=== PATIENT | male | born 1990 ===

== ENCOUNTER 2017-01-21 13:28 | Inpatient (IN) | payer MEDICAID, OTHER ==
[2017-01-21] MEDS ORDERED: Sodium Chloride 0.9% 1,000 ML IV ONE ×2 (14:07)
[2017-01-21] MEDS ORDERED: ceFAZolin IV 1 gm in Dextrose 1 GM/50 ML BAG IVPB STA (14:08)
[2017-01-21 14:23] LABS: VENOUS BLOOD GAS BASE EXCESS -10.5 mmol/L (0.0-2.0); VENOUS BLOOD GAS PCO2 25 mmHg (40-60); VENOUS BLOOD PH 7.34 (7.32-7.43)
[2017-01-21] MEDS ORDERED: ceFAZolin 1 gm FROZEN Premix 1 GM/50 ML ML IVPB ONE (14:24)
[2017-01-21] MEDS ORDERED: Sodium Chloride 0.9% 1,000 ML ONE (14:25)
[2017-01-21 14:39] LABS: BASO % 0.7 % (0.0-2.0); EOS # 0.2 K/uL (0.0-0.7); EOS % 2.6 % (0.0-4.0); LYMPH # 2.1 K/uL (1.0-4.3); LYMPH % 29.3 % (20.0-40.0); MEAN CELL VOLUME 87.5 fL (80.0-94.0); MEAN CORPUSCULAR HEMOGLOBIN 28.9 pg (27.0-31.0); MEAN PLATELET VOLUME 11.7 fL (7.2-11.7); MONO # 0.6 K/uL (0.0-0.8); MONO % 7.7 % (0.0-10.0); NRBC % 0.1 % (0.0-2.0); RED CELL DISTRIBUTION WIDTH 13.7 % (11.5-14.5); WHITE BLOOD COUNT 7.2 K/uL (4.8-10.8)
[2017-01-21 14:44] LABS: RBC URINE < 1 /hpf (0-3); URINE BILIRUBIN NEGATIVE (NEGATIVE); URINE BLOOD NEGATIVE (NEGATIVE); URINE COLOR Straw (YELLOW); URINE GLUCOSE (UA) 3+ mg/dL (Normal); URINE KETONE 2+ mg/dL (NEGATIVE); URINE LEUKOCYTE ESTERASE NEG Leu/uL (Negative); URINE PROTEIN NEGATIVE (NEGATIVE); URINE UROBILINOGEN NORMAL mg/dL (0.2-1.0); WBC URINE < 1 /hpf (0-5)
--- NOTE | 2017-01-21 14:44 | C.PDOC ---
History Of Present Illness 26 y/o male recent Diabetic presents to ED with complaints of blood sugar elevated and comes for evaluation of draining abscess to left upper leg. Patient denies allergies, fever, chills, numbness, n/v/d or any other complaints at this time. Time Seen by Provider: 01/21/17 13:56 Chief Complaint (Nursing): Abnormal Skin Integrity History Per: Patient History/Exam Limitations: no limitations Onset/Duration Of Symptoms: Days Current Symptoms Are (Timing): Still Present Location Of Injury: Left: Leg Quality Of Symptoms: Draining Past Medical History Reviewed: Historical Data, Nursing Documentation, Vital Signs Vital Signs: Last Vital Signs Temp 97.9 F 01/21/17 13:32 Pulse 97 H 01/21/17 16:17 Resp 19 01/21/17 16:17 BP 129/82 01/21/17 16:17 Pulse Ox 96 01/21/17 16:17 - Medical History PMH: Asthma Family History: States: No Known Family Hx - Social History Hx Alcohol Use: Yes Hx Substance Use: No - Immunization History Hx Tetanus Toxoid Vaccination: No (UNKNOWN) Hx Influenza Vaccination: No Review Of Systems Except As Marked, All Systems Reviewed And Found Negative. Constitutional: Negative for: Fever, Chills Gastrointestinal: Negative for: Nausea, Vomiting, Diarrhea Musculoskeletal: Positive for: Leg Pain Skin: Negative for: Rash Physical Exam - Physical Exam Appears: Non-toxic, No Acute Distress Skin: Warm, Dry, No Rash Head: Atraumatic, Normacephalic Oral Mucosa: Moist Chest: Symmetrical Cardiovascular: Rhythm Regular Respiratory: Normal Breath Sounds, No Rhonchi, No Wheezing Gastrointestinal/Abdominal: Soft, No Tenderness, No Guarding, No Rebound Extremity: Normal ROM, Capillary Refill (<2 seconds), Other (Cellulitis to left upper thigh, no draining, not flunctuant, +erythematous) Pulses: Left Dorsalis Pedis: Normal, Right Dorsalis Pedis: Normal Neurological/Psych: Oriented x3, Normal Speech, Normal Cognition, Normal Motor, Normal Sensation ED Course And Treatment - Laboratory Results Result Diagrams: 01/21/17 14:21 01/21/17 14:21 Lab Interpretation: Abnormal O2 Sat by Pulse Oximetry: 97 (RA) Pulse Ox Interpretation: Normal Progress Note: Treated with IVF NSS x 2 liters. Treated with ancef 1 gm IV and Insulin 5 Units IV Reassessment Condition: Improved - Physician Consult Information Physician Contacted: Neal Guerrero Outcome Of Conversation: admit Medical Decision Making Medical Decision Making: Plan: * IV fluids * Antibiotics Disposition Discussed With DrDestiny: Neal Guerrero Doctor Will See Patient In The: Hospital - Disposition Disposition: HOSPITALIZED Disposition Time: 15:25 Condition: STABLE - POA Present On Arrival: None - Clinical Impression Clinical Impression: Diabetes, Cellulitis - Scribe Statement The provider has reviewed the documentation as recorded by the Mickeyibanthony Taylor All medical record entries made by the Mickeyibanthony were at my direction and personally dictated by me. I have reviewed the chart and agree that the record accurately reflects my personal performance of the history, physical exam, medical decision making, and the department course for this patient. I have also personally directed, reviewed, and agree with the discharge instructions and disposition. Decision To Admit - Pt Status Changed To: Hospital Disposition Of: Inpatient - Admit Certification Admit to Inpatient:: After my assessment, the patient will require hospitalization for at least two midnights. This is because of the severity of symptoms shown, intensity of services needed, and/or the medical risk in this patient being treated as an outpatient. - InPatient: Physician Admission Certification: I certify that this patient requires 2 or more midnights of care for the following reason:: New Onset DM. Cellulitis left thigh - . Bed Request Type: Regular Admitting Physician: Neal Guerrero Patient Diagnosis: Diabetes, Cellulitis
[2017-01-21 14:51] LABS: CHLORIDE 98 mmol/L (98-107); POTASSIUM 4.3 mmol/L (3.6-5.2); SODIUM 134 mmol/L (132-148)
[2017-01-21 14:53] LABS: BILIRUBIN,TOTAL 1.3 mg/dL (0.2-1.3); GFR AFRICAN-AMERICAN > 60
[2017-01-21 14:54] LABS: ALB/GLOB RATIO 1.4 (1.0-2.1); ALKALINE PHOSPHATASE 83 U/L (38-126); ALT/SGPT 57 U/L (21-72); AST/SGOT 36 U/L (17-59); BLOOD UREA NITROGEN 10 mg/dL (9-20); CALCIUM 8.2 mg/dl (8.6-10.4); CARBON DIOXIDE 16 mmol/L (22-30); TOTAL PROTEIN 7.1 g/dL (6.3-8.3)
[2017-01-21 15:00] LABS: GLUCOSE,RANDOM 412 mg/dL (75-110)
[2017-01-21] MEDS ORDERED: (Novolin R) Insulin Human Regular 100 units/ml vial IV STA (15:27)
[2017-01-21] MEDS ORDERED: (Novolin R) Insulin Human Regular 100 units/ml vial ONE (16:04)
--- NOTE | 2017-01-21 16:13 | CP.PCM.HP ---
<Vasquez Nino - Last Filed: 01/21/17 17:24> History of Present Illness - History of Present Illness History of Present Illness: CC: abscess HPI: 26M PMHx asthma presented with left upper thigh abscess. Pt noticed pimple growing on left thigh on Thursday and got bigger progressively. Pt was at water park yesterday and was playing in water. Pt noticed the pimple got worse and started having bloody pus drainage today. Pt said he had similar pimple in the groin region in the past but did not developed into draining abscess. Pt complains of localized pain and denied fever, chills, n/v, chest pain, abdominal pain, constipation or diarrhea. Pt also has history of asthma and has been using ProAir on daily basis. Pt also complains of dry mouth, and has increased thirst with associated urinary frequency. Pt was admitted to hospital 5 years ago due to asthma, denied intubation. PMHx: see above PSHx: denied FMHx: father has CVA x2, grandfather has prostate CA, other members with DM and HTN Social: former smoker with 7 cigarettes a day for 10 years, quit 5 years ago. Social ETOH and denied drugs. Works at [employer]. Allergies: shelf fish and milk PMD: Dr. Ureña Present on Admission - Present on Admission Any Indicators Present on Admission: No Review of Systems - Constitutional Constitutional: absent: Chills, Weakness - EENT Eyes: absent: Blurred Vision Nose/Mouth/Throat: Dry Mouth - Cardiovascular Cardiovascular: absent: Chest Pain, Dyspnea, Leg Ulcers, Pedal Edema - Respiratory Respiratory: absent: Cough, Dyspnea - Gastrointestinal Gastrointestinal: absent: Abdominal Pain, Constipation, Diarrhea, Nausea, Vomiting - Genitourinary Genitourinary: Urinary Frequency - Integumentary Integumentary: New Lesions, Wounds - Neurological Neurological: absent: Abnormal Hearing - Psychiatric Psychiatric: absent: Anhedonia Past Patient History - Past Social History Smoking Status: Never Smoked - PULMONARY Hx Asthma: Yes - PSYCHIATRIC Hx Substance Use: No - SURGICAL HISTORY Hx Surgeries: No - ANESTHESIA Hx Anesthesia: No Meds Allergies/Adverse Reactions: Allergies Allergy/AdvReac Type Severity Reaction Status Date / Time milk Allergy Verified 01/21/17 13:32 shellfish derived Allergy Verified 01/21/17 13:32 Physical Exam - Constitutional Appears: Non-toxic, No Acute Distress Additional comments: obese - Head Exam Head Exam: NORMOCEPHALIC - Eye Exam Eye Exam: Normal appearance Pupil Exam: NORMAL ACCOMODATION - ENT Exam ENT Exam: Mucous Membranes Moist - Respiratory Exam Respiratory Exam: Clear to Auscultation Bilateral, NORMAL BREATHING PATTERN. absent: Rhonchi, Wheezes - Cardiovascular Exam Cardiovascular Exam: REGULAR RHYTHM, +S1, +S2. absent: Gallop, Rubs - GI/Abdominal Exam GI & Abdominal Exam: Normal Bowel Sounds, Soft. absent: Tenderness - Extremities Exam Extremities exam: Negative for: pedal edema - Back Exam Additional comments: multiple skin tags - Neurological Exam Neurological exam: Alert, Oriented x3 - Psychiatric Exam Psychiatric exam: Normal Affect, Normal Mood - Skin Additional comments: [id number] raised open wound with bloody discharge at left groin with induration below, erythematous. Scrotal region erythematous as well Results - Vital Signs Recent Vital Signs: Last Vital Signs Temp 97.9 F 01/21/17 13:32 Pulse 101 H 01/21/17 13:32 Resp 16 01/21/17 13:32 BP 156/96 H 01/21/17 13:32 Pulse Ox 97 01/21/17 15:34 - Labs Result Diagrams: 01/21/17 14:21 01/21/17 14:21 Labs: Laboratory Results - last 24 hr 01/21/17 15:39 POC Glucose (mg/dL) 365 H Assessment & Plan - Assessment and Plan (Free Text) Assessment: Abscess/Cellulitis General surgery Dr. Redd consulted, help appreciated. ID Dr. Chino consulted, help appreciated. Received 1 dose of Ancef in ED. Zosyn 3.375g IV q6H. Vancomycin 1.25g IV q12H per ID. NS@125ml/hr. F/U wound and blood culture. New onset DM 412 sugar on admission. Heart healthy moderate consistent carb diet. RISS, Accuchecks. F/U A1c. Asthma Duoneb PRN. Prophylactic measure Pepcid, SCD. <Antonio Serrano - Last Filed: 02/24/17 11:47> Results - Vital Signs Recent Vital Signs: Last Vital Signs Temp 97.8 F 01/23/17 07:28 Pulse 83 01/23/17 07:28 Resp 20 01/23/17 07:28 BP 121/70 01/23/17 07:28 Pulse Ox 95 01/23/17 07:28 - Labs Result Diagrams: 01/22/17 08:14 01/22/17 08:14 Attending/Attestation - Attestation I have personally seen and examined this patient.: Yes I have fully participated in the care of the patient.: Yes I have reviewed all pertinent clinical information: Yes Notes (Text): Groin abscess new onset DM uncontrolled
[2017-01-21] MEDS ORDERED: Sodium Chloride 0.9% 1,000 ML IV SCH (17:15)
[2017-01-21] MEDS: Sodium Chloride 0.9% 1,000 ML IV SCH (18:01)
--- NOTE | 2017-01-21 18:26 | CP.PCM.CON ---
<Neal Padron - Last Filed: 01/21/17 18:39> History of Present Illness - History of Present Illness History of Present Illness: Consult note- Dr. Redd 26M PMHx asthma presented to the ED with L upper thigh abscess that first took notice on Thursday and got progressively bigger. Today it started blood w/ purulent drainage. Pt had a similar episode in the past that resolved spontaneously. Pt also states inguinal fold is itchy and placed a joke itch cream that helped with symptoms. Denies F/C CP/SOB N/V/D BRBPR. PMHx: Asthma PSHx: none SocialHx: former smoker 7 cigarettes a day for 10 years, quit 5 years ago. Social ETOH and denied drugs ALL:: shelf fish and milk Review of Systems - Review of Systems All systems: reviewed and no additional remarkable complaints except Past Patient History - Past Social History Smoking Status: Never Smoked - PULMONARY Hx Asthma: Yes - PSYCHIATRIC Hx Substance Use: No - SURGICAL HISTORY Hx Surgeries: No - ANESTHESIA Hx Anesthesia: No Meds Allergies/Adverse Reactions: Allergies Allergy/AdvReac Type Severity Reaction Status Date / Time milk Allergy Verified 01/21/17 13:32 shellfish derived Allergy Verified 01/21/17 13:32 - Medications Medications: Current Medications Albuterol/Ipratropium (Duoneb 3 Mg/0.5 Mg (3 Ml) Ud) 3 ml INH RQ2 PRN PRN Reason: SOB Famotidine (Pepcid) 20 mg PO BID [facility] Last Admin: 01/21/17 18:03 Dose: 20 mg Piperacillin Sod/Tazobactam Sod (Zosyn 3.375 Gm Iv Premix) 3.375 gm in 50 mls @ 100 mls/hr IVPB Q6H [facility] Vancomycin HCl 1,250 mg/ (Sodium Chloride) 250 mls @ 166.6 mls/hr IVPB Q12H [facility] Last Admin: 01/21/17 18:02 Dose: 166.6 mls/hr Sodium Chloride (Sodium Chloride 0.9%) 1,000 mls @ 125 mls/hr IV .Q8H [facility] Last Admin: 01/21/17 18:01 Dose: 125 mls/hr Insulin Human Regular (Novolin R) 0 unit SC ACHS [facility] PRN Reason: Protocol Physical Exam - Constitutional Appears: No Acute Distress - Head Exam Head Exam: ATRAUMATIC - Eye Exam Eye Exam: EOMI - ENT Exam ENT Exam: Mucous Membranes Dry - Respiratory Exam Respiratory Exam: NORMAL BREATHING PATTERN. absent: Accessory Muscle Use, Rhonchi - Cardiovascular Exam Cardiovascular Exam: +S1, +S2 - GI/Abdominal Exam GI & Abdominal Exam: Normal Bowel Sounds, Soft. absent: Distended, Firm, Tenderness - Exam Additional comments: open actively draining abscess, erythematous, induration, no fluctuance. - Extremities Exam Extremities exam: Positive for: pedal edema Additional comments: +2 pulses U and LE B/L Results - Vital Signs Recent Vital Signs: Last Vital Signs Temp 98 F 01/21/17 16:00 Pulse 97 H 01/21/17 16:17 Resp 19 01/21/17 16:17 BP 129/82 01/21/17 16:17 Pulse Ox 97 01/21/17 16:57 - Labs Result Diagrams: 01/21/17 14:21 01/21/17 14:21 Labs: Laboratory Results - last 24 hr 01/21/17 01/21/17 01/21/17 15:39 16:44 17:02 POC Glucose (mg/dL) 365 H 258 H Hemoglobin A1c 12.1 H Assessment & Plan - Assessment and Plan (Free Text) Assessment: 26M Left medial thigh cellulitis Plan: - f/u ultrasound to determine fluid collection - nystatin powder - glycemic control - c/w IV abx - further recs per Dr. Ivania Padron PGY1 <Shabbir Redd - Last Filed: 01/24/17 17:37> Results - Vital Signs Recent Vital Signs: Last Vital Signs Temp 97.8 F 01/23/17 07:28 Pulse 83 01/23/17 07:28 Resp 20 01/23/17 07:28 BP 121/70 01/23/17 07:28 Pulse Ox 95 01/23/17 07:28 - Labs Result Diagrams: 01/22/17 08:14 01/22/17 08:14 Attending/Attestation - Attestation I have personally seen and examined this patient.: Yes I have fully participated in the care of the patient.: Yes I have reviewed all pertinent clinical information: Yes Notes (Text): 01/24/17 17:36 Pt was seen and examined at bedside Agree with above note and assessment Pt with Left thigh cellulitis with DM Local wound care C.w IV antibiotics Plan d.w pt in detail Risk and benefit explained in detail.
[2017-01-21] MEDS: Albuterol-Ipratrop 3 mg / 0.5 (3 ml) UD INH PRN ×2 (18:28→23:33)
[2017-01-21] MEDS: Piperacill/Tazo 3.375gm in Dex 3.375 GM/50 ML BAG IVPB SCH (19:55)
[2017-01-21] MEDS ORDERED: Pneumococcal 23-Valent Vaccine IM ONE (20:40)
[2017-01-21] MEDS: (Novolin R) Insulin Human Regular 100 units/ml vial SC SCH (22:25)
[2017-01-22] MEDS: Piperacill/Tazo 3.375gm in Dex 3.375 GM/50 ML BAG IVPB SCH ×4 (00:20→19:43)
[2017-01-22] MEDS: Sodium Chloride 0.9% 1,000 ML IV SCH ×4 (05:04→17:43)
[2017-01-22 07:21] VITALS: RESP 20
[2017-01-22] MEDS: Albuterol-Ipratrop 3 mg / 0.5 (3 ml) UD INH PRN ×4 (07:55→19:09)
[2017-01-22] MEDS: (Novolin R) Insulin Human Regular 100 units/ml vial SC SCH ×4 (08:06→21:22)
[2017-01-22 08:32] LABS: CHLORIDE 104 mmol/L (98-107); POTASSIUM 3.8 mmol/L (3.6-5.2); SODIUM 135 mmol/L (132-148)
[2017-01-22 08:34] LABS: GFR AFRICAN-AMERICAN > 60
[2017-01-22 08:35] LABS: ALB/GLOB RATIO 1.3 (1.0-2.1); ALKALINE PHOSPHATASE 63 U/L (38-126); ALT/SGPT 59 U/L (21-72); AST/SGOT 28 U/L (17-59); BILIRUBIN,TOTAL 0.8 mg/dL (0.2-1.3); BLOOD UREA NITROGEN 7 mg/dL (9-20); CALCIUM 7.9 mg/dl (8.6-10.4); CARBON DIOXIDE 15 mmol/L (22-30); GLUCOSE,RANDOM 247 mg/dL (75-110); TOTAL PROTEIN 5.7 g/dL (6.3-8.3)
[2017-01-22 08:37] LABS: BASO % 0.8 % (0.0-2.0); EOS # 0.2 K/uL (0.0-0.7); EOS % 4.4 % (0.0-4.0); HEMATOCRIT 40.4 % (35.0-51.0); LYMPH # 1.6 K/uL (1.0-4.3); LYMPH % 32.2 % (20.0-40.0); MEAN CELL VOLUME 87.3 fL (80.0-94.0); MEAN CORPUSCULAR HEMOGLOBIN 29.7 pg (27.0-31.0); MEAN PLATELET VOLUME 11.2 fL (7.2-11.7); MONO # 0.4 K/uL (0.0-0.8); MONO % 7.1 % (0.0-10.0); RED CELL DISTRIBUTION WIDTH 14.1 % (11.5-14.5); WHITE BLOOD COUNT 5.1 K/uL (4.8-10.8)
[2017-01-22] MEDS: Clotrimazole 1% Cream(30 gm) TOP SCH ×2 (10:52→21:29)
--- NOTE | 2017-01-22 12:54 | CP.PCM.PN ---
<Cresencio Francis E - Last Filed: 01/22/17 16:00> Subjective - Date & Time of Evaluation Date of Evaluation: 01/22/17 Time of Evaluation: 10:20 - Subjective Subjective: General surgery note Patient was seen and examined at bedside in no acute distress. Patient denies fever, chills, nausea, vomiting but does admit to mild pain and itchiness at the left groin region. Patient has no new complaints. Objective - Vital Signs/Intake and Output Vital Signs (last 24 hours): Temp Pulse Resp BP Pulse Ox 98.2 F 71 20 115/72 96 01/22/17 07:19 01/22/17 07:19 01/22/17 07:19 01/22/17 07:19 01/22/17 07:19 Intake and Output: 01/22/17 01/22/17 06:59 18:59 Intake Total 950 Balance 950 - Medications Medications: Current Medications Albuterol/Ipratropium (Duoneb 3 Mg/0.5 Mg (3 Ml) Ud) 3 ml INH RQ2 PRN PRN Reason: SOB Last Admin: 01/22/17 07:55 Dose: 3 ml Clotrimazole (Lotrimin 1%) 0 gm TOP BID [facility] Last Admin: 01/22/17 10:52 Dose: 1 applic Famotidine (Pepcid) 20 mg PO BID [facility] Last Admin: 01/22/17 10:15 Dose: 20 mg Piperacillin Sod/Tazobactam Sod (Zosyn 3.375 Gm Iv Premix) 3.375 gm in 50 mls @ 100 mls/hr IVPB Q6H [facility] Last Admin: 01/22/17 12:12 Dose: 100 mls/hr Vancomycin HCl 1,250 mg/ (Sodium Chloride) 250 mls @ 166.6 mls/hr IVPB Q12H [facility] Last Admin: 01/22/17 05:03 Dose: 166.6 mls/hr Sodium Chloride (Sodium Chloride 0.9%) 1,000 mls @ 125 mls/hr IV .Q8H [facility] Last Admin: 01/22/17 10:15 Dose: Not Given Insulin Human Regular (Novolin R) 0 unit SC ACHS [facility] PRN Reason: Protocol Last Admin: 01/22/17 12:12 Dose: 8 unit Pneumococcal Polyvalent Vaccine (Pneumovax 23 Vaccine) 0.5 ml IM .ONCE ONE Stop: 01/24/17 10:01 - Labs Labs: 01/22/17 08:14 01/22/17 08:14 - Constitutional Appears: Well, No Acute Distress - Head Exam Head Exam: ATRAUMATIC, NORMAL INSPECTION - Eye Exam Eye Exam: EOMI, Normal appearance - ENT Exam ENT Exam: Mucous Membranes Moist, Normal Exam - Respiratory Exam Respiratory Exam: Clear to Ausculation Bilateral, NORMAL BREATHING PATTERN - Cardiovascular Exam Cardiovascular Exam: REGULAR RHYTHM, +S1, +S2 - GI/Abdominal Exam GI & Abdominal Exam: Soft, Normal Bowel Sounds - Exam Additional comments: left groin erythema, induration, no fluctuance. 4 X 4 gauze - Extremities Exam Extremities Exam: absent: Calf Tenderness, Pedal Edema, Tenderness - Neurological Exam Neurological Exam: Alert, Awake, Oriented x3 - Psychiatric Exam Psychiatric exam: Normal Affect, Normal Mood - Skin Skin Exam: Dry, Normal Color, Warm Assessment and Plan - Assessment and Plan (Free Text) Assessment: 26M Left medial thigh cellulitis Plan: -Awaiting ultrasound official read to determine fluid collection -Continue IV Antibiotics -Clomitrazole cream application to the Left groin folds -Glycemic control -Further recs per Dr. Ivania Francis, PGY 1 <Shabbir Redd - Last Filed: 01/24/17 17:39> Objective - Vital Signs/Intake and Output Vital Signs (last 24 hours): Temp Pulse Resp BP Pulse Ox 97.8 F 83 20 121/70 95 01/23/17 07:28 01/23/17 07:28 01/23/17 07:28 01/23/17 07:28 01/23/17 07:28 - Labs Labs: 01/22/17 08:14 01/22/17 08:14 Attending/Attestation - Attestation I have personally seen and examined this patient.: Yes I have fully participated in the care of the patient.: Yes I have reviewed all pertinent clinical information, including history, physical exam and plan: Yes Notes (Text): 01/24/17 17:39 Pt was seen and examined at bedside Agree with above note and assessment Pt is improving clinically Local wound care DC plan F/U as out pt
[2017-01-22] MEDS ORDERED: (Lantus) Insulin Glargine, Recombinant SC ONE (20:33)
--- NOTE | 2017-01-22 20:42 | CP.PCM.PN ---
<Genaro Ellsworth - Last Filed: 01/22/17 20:40> Subjective - Date & Time of Evaluation Date of Evaluation: 01/22/17 Time of Evaluation: 20:40 - Subjective Subjective: PGY1 Note for Dr. Serrano HPI: Patient seen and examined at bedside. Patient wants to shower. Said the rash near his scrotum was not getting better with powder and he wanted something stronger. Patient was advised that he has DM and was counceled on Diet modifications and exercise. He was told of the consequences of the disease if he did not change his lifestyle, Denies N/V/D/CP/SOB Objective - Vital Signs/Intake and Output Vital Signs (last 24 hours): Temp Pulse Resp BP Pulse Ox 98.1 F 89 20 141/79 98 01/22/17 15:00 01/22/17 15:00 01/22/17 15:00 01/22/17 15:00 01/22/17 15:00 Intake and Output: 01/22/17 01/23/17 18:59 06:59 Intake Total 975 Balance 975 - Medications Medications: Current Medications Albuterol/Ipratropium (Duoneb 3 Mg/0.5 Mg (3 Ml) Ud) 3 ml INH RQ2 PRN PRN Reason: SOB Last Admin: 01/22/17 19:09 Dose: 3 ml Clotrimazole (Lotrimin 1%) 0 gm TOP BID [facility] Last Admin: 01/22/17 10:52 Dose: 1 applic Famotidine (Pepcid) 20 mg PO BID [facility] Last Admin: 01/22/17 17:45 Dose: 20 mg Piperacillin Sod/Tazobactam Sod (Zosyn 3.375 Gm Iv Premix) 3.375 gm in 50 mls @ 100 mls/hr IVPB Q6H [facility] Last Admin: 01/22/17 19:43 Dose: 100 mls/hr Vancomycin HCl 1,250 mg/ (Sodium Chloride) 250 mls @ 166.6 mls/hr IVPB Q12H [facility] Last Admin: 01/22/17 17:46 Dose: 166.6 mls/hr Sodium Chloride (Sodium Chloride 0.9%) 1,000 mls @ 125 mls/hr IV .Q8H [facility] Last Admin: 01/22/17 17:43 Dose: 125 mls/hr Insulin Glargine (Lantus) 10 unit SC ONCE ONE Stop: 01/22/17 20:34 Insulin Human Regular (Novolin R) 0 unit SC ACHS [facility] PRN Reason: Protocol Last Admin: 01/22/17 17:45 Dose: 6 unit Metformin HCl (Glucophage) 500 mg PO BID [facility] Pneumococcal Polyvalent Vaccine (Pneumovax 23 Vaccine) 0.5 ml IM .ONCE ONE Stop: 01/24/17 10:01 - Labs Labs: 01/22/17 08:14 01/22/17 08:14 - Constitutional Appears: Well, Non-toxic, No Acute Distress - Head Exam Head Exam: ATRAUMATIC, NORMAL INSPECTION, NORMOCEPHALIC - Eye Exam Eye Exam: EOMI - ENT Exam ENT Exam: Mucous Membranes Moist - Respiratory Exam Respiratory Exam: Clear to Ausculation Bilateral. absent: Rhonchi, Wheezes, Stridor - Cardiovascular Exam Cardiovascular Exam: REGULAR RHYTHM - GI/Abdominal Exam GI & Abdominal Exam: Soft. absent: Distended, Firm, Guarding, Tenderness - Neurological Exam Neurological Exam: Alert, Awake, Oriented x3 - Psychiatric Exam Psychiatric exam: Normal Affect, Normal Mood - Skin Skin Exam: Dry, Intact, Normal Color, Warm Assessment and Plan - Assessment and Plan (Free Text) Assessment: Abscess/Cellulitis General surgery Dr. Redd consulted, help appreciated * Waiting on US results ID Dr. Chino consulted - F/U Received 1 dose of Ancef in ED. Zosyn 3.375g IV q6H. Vancomycin 1.25g IV q12H per ID. NS@125ml/hr. F/U wound and blood culture. Topical Clotrimazole for Tinea New onset DM 412 sugar on admission. Heart healthy moderate consistent carb diet. Lantus 10 units, Metformin 500 BID Consulted Diabetic consoler A1C 12.1 Asthma Duoneb PRN. Prophylactic measure Pepcid, SCD. <Antonio Serrano - Last Filed: 02/24/17 11:48> Objective - Vital Signs/Intake and Output Vital Signs (last 24 hours): Temp Pulse Resp BP Pulse Ox 97.8 F 83 20 121/70 95 01/23/17 07:28 01/23/17 07:28 01/23/17 07:28 01/23/17 07:28 01/23/17 07:28 - Labs Labs: 01/22/17 08:14 01/22/17 08:14 Attending/Attestation - Attestation I have personally seen and examined this patient.: Yes I have fully participated in the care of the patient.: Yes I have reviewed all pertinent clinical information, including history, physical exam and plan: Yes Notes (Text): Groin abscess new onset DM uncontrolled
[2017-01-22] MEDS ORDERED: (Novolin R) Insulin Human Regular 100 units/ml vial SC ONE (23:03)
[2017-01-23 00:25] VITALS: O2SAT 95
[2017-01-23] MEDS: Albuterol-Ipratrop 3 mg / 0.5 (3 ml) UD INH PRN ×3 (00:32→11:45)
[2017-01-23] MEDS: Piperacill/Tazo 3.375gm in Dex 3.375 GM/50 ML BAG IVPB SCH ×3 (01:25→13:21)
[2017-01-23] MEDS: Sodium Chloride 0.9% 1,000 ML IV SCH ×2 (02:08→09:00)
--- NOTE | 2017-01-23 04:35 | CON ---
DATE: SUBJECTIVE: The patient is 26-year-old with history of asthma and he says he is morbidly obese with BMI of 45.6. His thigh is bleeding. He was also having darkish itch for last two to three weeks, stated, "we played in the water park and remained wet" and then he noted a pimple, which appeared, and right now, he has an abscess in the left thigh with cellulitis. Denies any itch in the groin area. There has been no fever, no chills, no chest pain, no abdominal pain, no constipation, no diarrhea. He denies any STDs in the past. History of asthma. His family history is significant for diabetes and he tells me he is now diagnosed with diabetes, came in with increased thirst and increased polyuria and polydipsia, and he now diagnosed to be diabetic. SURGICAL HISTORY: Negative. FAMILY HISTORY: Significant for father having 2 CVAs, grandfather had prostate cancer, and mother has diabetes and hypertension. SOCIAL HISTORY: He is a smoker, smokes 7 cigarettes a day for last 10 years, quit 5 years ago. Social ETOH use. He denies any drugs. He works as a senior construction estimator. REVIEW OF SYSTEMS: He had no other symptoms, but above. ALLERGIES: HE IS NOT ALLERGIC TO ANY MEDICINE. MEDICATIONS: He was started on vancomycin and Zosyn and we increased up the dose as he is obese and he is on Zosyn at this time. PHYSICAL EXAMINATION: VITAL SIGNS: I find his temperature is 98.2, pulse 71, blood pressure 115/72, respirations are 20. HEENT: Head is atraumatic, normocephalic. Pupils are reacting to light. He is morbidly obese. NECK: Supple. JVP is flat. LUNGS: Clear. No crackles or rales present at this time. HEART: S1 and S2 regular. ABDOMEN: Soft, nontender. No guarding. No rigidity present. EXTREMITIES: No edema, clubbing, or cyanosis. The left thigh has a small abscess present with surrounding cellulitis around it, and he is also complaining of with the clotrimazole, and we will continue present treatment. LABORATORY DATA: White count is 5.1 and BUN is 7, creatinine is 0.6, and I hope they did the blood cultures. I do not see that, but there is a wound culture, which is pending at this time. We will follow this and we will put him on Lotrimin cream to the groin and he is diabetic, he needs to change his lifestyle and weight. IMp: Left thigh cellulitis with obesity and Diabetes plan to continue IV antibiotics and add clotrimazole cream to the groin Víctor Chino MD MTDEmily
--- NOTE | 2017-01-23 06:13 | CP.PCM.PN ---
Subjective - Date & Time of Evaluation Date of Evaluation: 01/23/17 Time of Evaluation: 06:11 - Subjective Subjective: PGY-[address] Serrano HPI: Patient seen and examined at bedside. Doing well with no complaints at this time. We talked about his diet and how exercise would improve his current condition. We talked about having a diabetic specialist come and advise him further. States his rash on his thigh is feeling better after the new medication. He states the abscess has been having minimal drainage. Objective - Vital Signs/Intake and Output Vital Signs (last 24 hours): Temp Pulse Resp BP Pulse Ox 97.9 F 99 H 20 109/61 95 01/23/17 00:00 01/23/17 00:00 01/23/17 00:00 01/23/17 00:00 01/23/17 00:00 Intake and Output: 01/22/17 01/23/17 18:59 06:59 Intake Total 975 1500 Balance 975 1500 - Medications Medications: Current Medications Albuterol/Ipratropium (Duoneb 3 Mg/0.5 Mg (3 Ml) Ud) 3 ml INH RQ2 PRN PRN Reason: SOB Last Admin: 01/23/17 00:32 Dose: 3 ml Clotrimazole (Lotrimin 1%) 0 gm TOP BID [facility] Last Admin: 01/22/17 21:29 Dose: 1 applic Famotidine (Pepcid) 20 mg PO BID [facility] Last Admin: 01/22/17 17:45 Dose: 20 mg Piperacillin Sod/Tazobactam Sod (Zosyn 3.375 Gm Iv Premix) 3.375 gm in 50 mls @ 100 mls/hr IVPB Q6H [facility] Last Admin: 01/23/17 01:25 Dose: 100 mls/hr Vancomycin HCl 1,250 mg/ (Sodium Chloride) 250 mls @ 166.6 mls/hr IVPB Q12H [facility] Last Admin: 01/22/17 17:46 Dose: 166.6 mls/hr Sodium Chloride (Sodium Chloride 0.9%) 1,000 mls @ 125 mls/hr IV .Q8H [facility] Last Admin: 01/23/17 02:08 Dose: 125 mls/hr Insulin Human Regular (Novolin R) 0 unit SC ACHS [facility] PRN Reason: Protocol Last Admin: 01/22/17 21:22 Dose: 4 unit Metformin HCl (Glucophage) 500 mg PO BID [facility] Last Admin: 01/22/17 21:21 Dose: 500 mg Pneumococcal Polyvalent Vaccine (Pneumovax 23 Vaccine) 0.5 ml IM .ONCE ONE Stop: 01/24/17 10:01 - Labs Labs: 01/22/17 08:14 01/22/17 08:14 - Constitutional Appears: Well, Non-toxic, No Acute Distress - Head Exam Head Exam: ATRAUMATIC, NORMAL INSPECTION, NORMOCEPHALIC - Eye Exam Eye Exam: EOMI - ENT Exam ENT Exam: Mucous Membranes Moist - Respiratory Exam Respiratory Exam: Clear to Ausculation Bilateral, NORMAL BREATHING PATTERN - Cardiovascular Exam Cardiovascular Exam: REGULAR RHYTHM - GI/Abdominal Exam GI & Abdominal Exam: Soft, Normal Bowel Sounds. absent: Distended, Tenderness - Back Exam Additional comments: Rash on the L. side of his tigh near his scrotum is red with dry powder applied. Abscess draining minimal pus. Dressing changed. - Neurological Exam Neurological Exam: Alert, Awake, Oriented x3 - Psychiatric Exam Psychiatric exam: Normal Affect, Normal Mood - Skin Skin Exam: Dry, Intact, Normal Color, Warm Assessment and Plan - Assessment and Plan (Free Text) Assessment: Abscess/Cellulitis * General surgery ([place]) * Waiting on US results * ID (Matti) consulted * Zosyn 3.375g IV q6H. * Vancomycin 1.25g IV q12H per ID. * NS@125ml/hr * F/U wound and blood culture. * Topical Clotrimazole for Tinea * Dressing changed today New onset DM * 412 sugar on admission. * Heart healthy moderate consistent carb diet. * Lantus 10 units, Metformin 500 BID * Consulted Diabetic consoler * A1C 12.1 Asthma * Duoneb PRN PPX * Pepcid, SCD.
--- NOTE | 2017-01-23 06:57 | US ---
EXAM: US Left Lower Extremity Non-Vascular, Complete CLINICAL HISTORY: 26 years old, male; Signs and symptoms; Other: Edema , rednness , cellulitis , ; additional info: Determine depth of fluid collection TECHNIQUE: Real-time ultrasound scan of the left lower extremity with image documentation. COMPARISON: No relevant prior studies available. FINDINGS: Soft tissues: 1.5(d) x 1.3(l) x 1.2(w) cm hypoechoic lesion with internal echoes within medial thigh contiguous with skin surface. No internal vascularity. Mild vascularity within surrounding edematous soft tissues. IMPRESSION: 1. Soft tissue lesion, nonspecific. DDX: Phlegmon/abscess, hematoma, less likely cystic neoplasm. Clinical correlation is needed. 2. Incidental/non-acute findings are described above.
[2017-01-23 07:30] VITALS: BP 121/70; PULSE 83; TEMP 97.8
[2017-01-23] MEDS: (Novolin R) Insulin Human Regular 100 units/ml vial SC SCH ×2 (08:16→11:36)
[2017-01-23] MEDS: Clotrimazole 1% Cream(30 gm) TOP SCH (09:00)
--- NOTE | 2017-01-23 10:46 | CP.PCM.PN ---
<Burton Arreola D - Last Filed: 01/23/17 10:46> Subjective - Date & Time of Evaluation Date of Evaluation: 01/23/17 Time of Evaluation: 08:10 - Subjective Subjective: SURGERY NOTE FOR DR. REDD 26M seen and examined at bedside. States pain is better controlled. [place]. Objective - Vital Signs/Intake and Output Vital Signs (last 24 hours): Temp Pulse Resp BP Pulse Ox 97.8 F 83 20 121/70 95 01/23/17 07:28 01/23/17 07:28 01/23/17 07:28 01/23/17 07:28 01/23/17 07:28 Intake and Output: 01/23/17 01/23/17 06:59 18:59 Intake Total 3350 Balance 3350 - Medications Medications: Current Medications Albuterol/Ipratropium (Duoneb 3 Mg/0.5 Mg (3 Ml) Ud) 3 ml INH RQ2 PRN PRN Reason: SOB Last Admin: 01/23/17 06:43 Dose: 3 ml Clotrimazole (Lotrimin 1%) 0 gm TOP BID [facility] Last Admin: 01/23/17 09:00 Dose: 1 applic Famotidine (Pepcid) 20 mg PO BID [facility] Last Admin: 01/23/17 09:00 Dose: 20 mg Piperacillin Sod/Tazobactam Sod (Zosyn 3.375 Gm Iv Premix) 3.375 gm in 50 mls @ 100 mls/hr IVPB Q6H [facility] Last Admin: 01/23/17 06:26 Dose: 100 mls/hr Vancomycin HCl 1,250 mg/ (Sodium Chloride) 250 mls @ 166.6 mls/hr IVPB Q12H [facility] Last Admin: 01/23/17 05:15 Dose: 166.6 mls/hr Sodium Chloride (Sodium Chloride 0.9%) 1,000 mls @ 125 mls/hr IV .Q8H [facility] Last Admin: 01/23/17 09:00 Dose: Not Given Insulin Human Regular (Novolin R) 0 unit SC ACHS [facility] PRN Reason: Protocol Last Admin: 01/23/17 08:16 Dose: 4 unit Metformin HCl (Glucophage) 500 mg PO BID [facility] Last Admin: 01/23/17 09:00 Dose: 500 mg Pneumococcal Polyvalent Vaccine (Pneumovax 23 Vaccine) 0.5 ml IM .ONCE ONE Stop: 01/24/17 10:01 - Labs Labs: 01/22/17 08:14 01/22/17 08:14 - Constitutional Appears: Non-toxic, No Acute Distress - Respiratory Exam Respiratory Exam: Clear to Ausculation Bilateral, NORMAL BREATHING PATTERN - Cardiovascular Exam Cardiovascular Exam: REGULAR RHYTHM, +S1, +S2 - Extremities Exam Additional comments: left medial thigh cellulitis evident, draining serosang. - Neurological Exam Neurological Exam: Alert, Awake Assessment and Plan - Assessment and Plan (Free Text) Assessment: 26M with left medial thigh cellulitis abscess US: fluid collection contiguous with open wound Plan: - continue to monitor drainage - continue IV abx Further recs discuss with Dr. [place]ia Arreola, PGY2 <Shabbir Redd - Last Filed: 01/24/17 17:45> Objective - Vital Signs/Intake and Output Vital Signs (last 24 hours): Temp Pulse Resp BP Pulse Ox 97.8 F 83 20 121/70 95 01/23/17 07:28 01/23/17 07:28 01/23/17 07:28 01/23/17 07:28 01/23/17 07:28 - Labs Labs: 01/22/17 08:14 01/22/17 08:14 Attending/Attestation - Attestation I have personally seen and examined this patient.: Yes I have fully participated in the care of the patient.: Yes I have reviewed all pertinent clinical information, including history, physical exam and plan: Yes Notes (Text): 01/24/17 17:44 Pt was seen and examined at bedside Agree with above note and assessment
--- NOTE | 2017-01-23 13:47 | CP.PCM.DIS ---
<Genaro Ellsworth - Last Filed: 01/23/17 16:05> Provider - Provider Date of Admission: 01/21/17 15:28 Attending physician: Antonio Serrano MD Primary care physician: Dr. Ureña Consults: ID: Dr. Chino Surgery: [place] Time Spent in preparation of Discharge (in minutes): 60 Diagnosis - Discharge Diagnosis (1) Tinea cruris Status: Acute Priority: Low Hospital Course - Lab Results Lab Results: Micro Results 01/21/17 16:30 Blood-Venous Blood Culture - Preliminary NO GROWTH AFTER 24 HOURS 01/21/17 16:30 Blood-Venous Blood Culture - Preliminary NO GROWTH AFTER 24 HOURS 01/21/17 18:38 Thigh - Left Gram Stain - Final Most Recent Lab Values WBC 5.1 K/uL (4.8-10.8) 01/22/17 08:14 RBC 4.63 Mil/uL (4.40-5.90) 01/22/17 08:14 Hgb 13.7 g/dL (12.0-18.0) 01/22/17 08:14 Hct 40.4 % (35.0-51.0) 01/22/17 08:14 MCV 87.3 fL (80.0-94.0) 01/22/17 08:14 MCH 29.7 pg (27.0-31.0) 01/22/17 08:14 MCHC 34.0 g/dL (33.0-37.0) 01/22/17 08:14 RDW 14.1 % (11.5-14.5) 01/22/17 08:14 Plt Count 155 K/uL (130-400) 01/22/17 08:14 MPV 11.2 fL (7.2-11.7) 01/22/17 08:14 Neut % (Auto) 55.5 % (50.0-75.0) 01/22/17 08:14 Lymph % (Auto) 32.2 % (20.0-40.0) 01/22/17 08:14 [place] % (Auto) 7.1 % (0.0-10.0) 01/22/17 08:14 Eos % (Auto) 4.4 % (0.0-4.0) H 01/22/17 08:14 Baso % (Auto) 0.8 % (0.0-2.0) 01/22/17 08:14 Neut # 2.8 K/uL (1.8-7.0) 01/22/17 08:14 Lymph # 1.6 K/uL (1.0-4.3) 01/22/17 08:14 [place] # 0.4 K/uL (0.0-0.8) 01/22/17 08:14 Eos # 0.2 K/uL (0.0-0.7) 01/22/17 08:14 Baso # 0.0 K/uL (0.0-0.2) 01/22/17 08:14 pO2 60 mm/Hg (30-55) H 01/21/17 14:19 VBG pH 7.34 (7.32-7.43) 01/21/17 14:19 VBG pCO2 25 mmHg (40-60) L 01/21/17 14:19 VBG HCO3 16.5 mmol/L 01/21/17 14:19 VBG Total CO2 14.3 mmol/L (22-28) L 01/21/17 14:19 VBG O2 Sat (Calc) 95.0 % (40-65) H 01/21/17 14:19 VBG Base Excess -10.5 mmol/L (0.0-2.0) L 01/21/17 14:19 VBG Potassium 3.3 mmol/L (3.6-5.2) L 01/21/17 14:19 Sodium 140.0 mmol/l (132-148) 01/21/17 14:19 Chloride 111.0 mmol/L (98-107) H 01/21/17 14:19 Glucose 323 mg/dl (75-110) H 01/21/17 14:19 Lactate 0.9 mmol/L (0.7-2.1) 01/21/17 14:19 Sodium 135 mmol/L (132-148) 01/22/17 08:14 Potassium 3.8 mmol/L (3.6-5.2) 01/22/17 08:14 Chloride 104 mmol/L (98-107) 01/22/17 08:14 Carbon Dioxide 15 mmol/L (22-30) L 01/22/17 08:14 Anion Gap 20 (10-20) 01/22/17 08:14 BUN 7 mg/dL (9-20) L 01/22/17 08:14 Creatinine 0.6 MG/DL (0.8-1.5) L 01/22/17 08:14 Est GFR ( Amer) > 60 01/22/17 08:14 Est GFR (Non-Af Amer) > 60 01/22/17 08:14 POC Glucose (mg/dL) 271 mg/dL (65-110) H 01/23/17 11:17 Random Glucose 247 mg/dL (75-110) H 01/22/17 08:14 Hemoglobin A1c 12.1 % (4.2-6.5) H 01/21/17 16:44 Calcium 7.9 mg/dl (8.6-10.4) L 01/22/17 08:14 Total Bilirubin 0.8 mg/dL (0.2-1.3) 01/22/17 08:14 AST 28 U/L (17-59) 01/22/17 08:14 ALT 59 U/L (21-72) 01/22/17 08:14 Alkaline Phosphatase 63 U/L (38-126) 01/22/17 08:14 Total Protein 5.7 g/dL (6.3-8.3) L 01/22/17 08:14 Albumin 3.3 g/dL (3.5-5.0) L D 01/22/17 08:14 Globulin 2.4 gm/dL (2.2-3.9) 01/22/17 08:14 Albumin/Globulin Ratio 1.3 (1.0-2.1) 01/22/17 08:14 Venous Blood Potassium 3.3 mmol/L (3.6-5.2) L 01/21/17 14:19 Urine Color Straw (YELLOW) 01/21/17 14:36 Urine Clarity Clear (Clear) 01/21/17 14:36 Urine pH 5.0 (5.0-8.0) 01/21/17 14:36 Ur Specific [place] 1.031 (1.003-1.030) H 01/21/17 14:36 Urine Protein Negative mg/dL (NEGATIVE) 01/21/17 14:36 Urine Glucose (UA) 3+ mg/dL (Normal) H 01/21/17 14:36 Urine Ketones 2+ mg/dL (NEGATIVE) H 01/21/17 14:36 Urine Blood Negative (NEGATIVE) 01/21/17 14:36 Urine Nitrate Negative (NEGATIVE) 01/21/17 14:36 Urine Bilirubin Negative (NEGATIVE) 01/21/17 14:36 Urine Urobilinogen Normal mg/dL (0.2-1.0) 01/21/17 14:36 Ur Leukocyte Esterase Neg Brenda/uL (Negative) 01/21/17 14:36 Urine WBC (Auto) < 1 /hpf (0-5) 01/21/17 14:36 Urine RBC (Auto) < 1 /hpf (0-3) 01/21/17 14:36 Serum Ketones Moderate (NEGATIVE) 01/21/17 14:21 - Hospital Course Hospital Course: 26M PMHx asthma presented with left upper thigh abscess. Pt noticed pimple growing on left thigh on Thursday and got bigger progressively. Pt was at [employer] [place] yesterday and was playing in water. Pt noticed the pimple got worse and started having bloody pus drainage today. Pt said he had similar pimple in the groin region in the past but did not developed into draining abscess. Pt complains of localized pain and denied fever, chills, n/v, chest pain, abdominal pain, constipation or diarrhea. Pt also has history of asthma and has been using ProAir on daily basis. Pt also complains of dry mouth, and has increased thirst with associated urinary frequency. Pt was admitted to hospital 5 years ago due to asthma, denied intubation. 26 year old male admitted to the ED on 01/21/17 for abscess on left inner thigh. Surgery consulted on 01/21/17 Extremity U/S was performed 01/21/17. Soft tissue lesions noted. Suspicion of phlegmon/abscess Dr Chino consulted 01/22/17 Patient is well appearing - Date & Time of H&P Date of H&P: 01/21/17 Time of H&P: 16:10 Discharge Exam - Head Exam Head Exam: ATRAUMATIC, NORMAL INSPECTION, NORMOCEPHALIC - Eye Exam Eye Exam: EOMI - ENT Exam ENT Exam: Mucous Membranes Moist - Respiratory Exam Respiratory Exam: NORMAL BREATHING PATTERN, UNREMARKABLE - Cardiovascular Exam Cardiovascular Exam: REGULAR RHYTHM - GI/Abdominal Exam GI & Abdominal Exam: Normal Bowel Sounds, Soft, Unremarkable. absent: Distended , Tenderness - Extremities Exam Additional comments: rash in L. groin,Open draining abscess - Neurological Exam Neurological exam: Alert - Psychiatric Exam Psychiatric exam: Normal Affect, Normal Mood - Skin Skin Exam: Dry, Intact, Normal Color, Warm Discharge Plan - Discharge Medications Prescriptions: Albuterol Sulfate [Proair Hfa] 200 puff IH Q6H PRN #1 PRN Reason: Shortness Of Breath Clotrimazole 1% Cream [Lotrimin 1%] 1 gm TOP BID #1 metFORMIN [glucOPHAGE] 1,000 mg PO BID 60 Days tab SITagliptin [Januvia] 50 mg PO DAILY #30 tab - Follow Up Plan Condition: STABLE Disposition: HOME/ ROUTINE Patient education suggested?: Yes Instructions: Albuterol (By breathing), Betamethasone/Clotrimazole (On the skin ), Metformin (By mouth), Sitagliptin (By mouth), Cellulitis (DC), Cellulitis ( GEN) Additional Instructions: Surgically, Patient is stable and clear for discharge. From an infectious disease standpoint, patient is clear and ready for d/c. From a medical standpoint, patient is stable and clear for d/c. Please follow up with Dr. Mendez as an outpatient for management of your diabetes. Please call his office to make an appointment w/in the next week. Please follow up with your primary care provider in one week. Call the office to make an appointment. If you prefer to come to our clinic you may. Please call and make an appointment If symptoms return please come to back the ER. Prescription instruction to be provided at discharge. Referrals: Davida Mendez MD [Medical Doctor] - [facility] at [facility] [Outside] <Anotnio Serrano - Last Filed: 02/24/17 11:52> Provider - Provider Date of Admission: 01/21/17 15:28 Attending physician: Antonio Serrano MD Hospital Course - Lab Results Lab Results: Micro Results 01/21/17 16:30 Blood-Venous Blood Culture - Final NO GROWTH AFTER 5 DAYS 01/21/17 16:30 Blood-Venous Gram Stain - Final TEST NOT PERFORMED 01/21/17 16:30 Blood-Venous Blood Culture - Final NO GROWTH AFTER 5 DAYS 01/21/17 16:30 Blood-Venous Gram Stain - Final TEST NOT PERFORMED 01/21/17 18:38 Thigh - Left Gram Stain - Final 01/21/17 18:38 Thigh - Left Wound Culture - Final Enterococcus Faecalis Most Recent Lab Values WBC 5.1 K/uL (4.8-10.8) 01/22/17 08:14 RBC 4.63 Mil/uL (4.40-5.90) 01/22/17 08:14 Hgb 13.7 g/dL (12.0-18.0) 01/22/17 08:14 Hct 40.4 % (35.0-51.0) 01/22/17 08:14 MCV 87.3 fL (80.0-94.0) 01/22/17 08:14 MCH 29.7 pg (27.0-31.0) 01/22/17 08:14 MCHC 34.0 g/dL (33.0-37.0) 01/22/17 08:14 RDW 14.1 % (11.5-14.5) 01/22/17 08:14 Plt Count 155 K/uL (130-400) 01/22/17 08:14 MPV 11.2 fL (7.2-11.7) 01/22/17 08:14 Neut % (Auto) 55.5 % (50.0-75.0) 01/22/17 08:14 Lymph % (Auto) 32.2 % (20.0-40.0) 01/22/17 08:14 [place] % (Auto) 7.1 % (0.0-10.0) 01/22/17 08:14 Eos % (Auto) 4.4 % (0.0-4.0) H 01/22/17 08:14 Baso % (Auto) 0.8 % (0.0-2.0) 01/22/17 08:14 Neut # 2.8 K/uL (1.8-7.0) 01/22/17 08:14 Lymph # 1.6 K/uL (1.0-4.3) 01/22/17 08:14 [place] # 0.4 K/uL (0.0-0.8) 01/22/17 08:14 Eos # 0.2 K/uL (0.0-0.7) 01/22/17 08:14 Baso # 0.0 K/uL (0.0-0.2) 01/22/17 08:14 pO2 60 mm/Hg (30-55) H 01/21/17 14:19 VBG pH 7.34 (7.32-7.43) 01/21/17 14:19 VBG pCO2 25 mmHg (40-60) L 01/21/17 14:19 VBG HCO3 16.5 mmol/L 01/21/17 14:19 VBG Total CO2 14.3 mmol/L (22-28) L 01/21/17 14:19 VBG O2 Sat (Calc) 95.0 % (40-65) H 01/21/17 14:19 VBG Base Excess -10.5 mmol/L (0.0-2.0) L 01/21/17 14:19 VBG Potassium 3.3 mmol/L (3.6-5.2) L 01/21/17 14:19 Sodium 140.0 mmol/l (132-148) 01/21/17 14:19 Chloride 111.0 mmol/L (98-107) H 01/21/17 14:19 Glucose 323 mg/dl (75-110) H 01/21/17 14:19 Lactate 0.9 mmol/L (0.7-2.1) 01/21/17 14:19 Sodium 135 mmol/L (132-148) 01/22/17 08:14 Potassium 3.8 mmol/L (3.6-5.2) 01/22/17 08:14 Chloride 104 mmol/L (98-107) 01/22/17 08:14 Carbon Dioxide 15 mmol/L (22-30) L 01/22/17 08:14 Anion Gap 20 (10-20) 01/22/17 08:14 BUN 7 mg/dL (9-20) L 01/22/17 08:14 Creatinine 0.6 MG/DL (0.8-1.5) L 01/22/17 08:14 Est GFR ( Amer) > 60 01/22/17 08:14 Est GFR (Non-Af Amer) > 60 01/22/17 08:14 POC Glucose (mg/dL) 284 mg/dL (65-110) H 01/23/17 14:06 Random Glucose 247 mg/dL (75-110) H 01/22/17 08:14 Hemoglobin A1c 12.1 % (4.2-6.5) H 01/21/17 16:44 Calcium 7.9 mg/dl (8.6-10.4) L 01/22/17 08:14 Total Bilirubin 0.8 mg/dL (0.2-1.3) 01/22/17 08:14 AST 28 U/L (17-59) 01/22/17 08:14 ALT 59 U/L (21-72) 01/22/17 08:14 Alkaline Phosphatase 63 U/L (38-126) 01/22/17 08:14 Total Protein 5.7 g/dL (6.3-8.3) L 01/22/17 08:14 Albumin 3.3 g/dL (3.5-5.0) L D 01/22/17 08:14 Globulin 2.4 gm/dL (2.2-3.9) 01/22/17 08:14 Albumin/Globulin Ratio 1.3 (1.0-2.1) 01/22/17 08:14 Venous Blood Potassium 3.3 mmol/L (3.6-5.2) L 01/21/17 14:19 Urine Color Straw (YELLOW) 01/21/17 14:36 Urine Clarity Clear (Clear) 01/21/17 14:36 Urine pH 5.0 (5.0-8.0) 01/21/17 14:36 Ur Specific [place] 1.031 (1.003-1.030) H 01/21/17 14:36 Urine Protein Negative mg/dL (NEGATIVE) 01/21/17 14:36 Urine Glucose (UA) 3+ mg/dL (Normal) H 01/21/17 14:36 Urine Ketones 2+ mg/dL (NEGATIVE) H 01/21/17 14:36 Urine Blood Negative (NEGATIVE) 01/21/17 14:36 Urine Nitrate Negative (NEGATIVE) 01/21/17 14:36 Urine Bilirubin Negative (NEGATIVE) 01/21/17 14:36 Urine Urobilinogen Normal mg/dL (0.2-1.0) 01/21/17 14:36 Ur Leukocyte Esterase Neg Brenda/uL (Negative) 01/21/17 14:36 Urine WBC (Auto) < 1 /hpf (0-5) 01/21/17 14:36 Urine RBC (Auto) < 1 /hpf (0-3) 01/21/17 14:36 Serum Ketones Moderate (NEGATIVE) 01/21/17 14:21 Attending/Attestation - Attestation I have personally seen and examined this patient.: Yes I have fully participated in the care of the patient.: Yes I have reviewed all pertinent clinical information, including history, physical exam and plan: Yes Notes (Text): Groin abscess new onset DM uncontrolled
[2017-01-24] MEDS ORDERED: Pneumococcal 23-Valent Vaccine IM ONE (10:00)
== END 2017-01-23 14:42 | disposition home or self-care (01) | DRG 295 ==
LOC: C.ER 13:28 → C.9E 15:28 → C.3T 16:02
PROVIDERS: ADMIT Internal Medicine; ATTEND Internal Medicine
DX: E11.65 Type 2 diabetes mellitus with hyperglycemia (principal); L02.416 Cutaneous abscess of left lower limb; Z68.42 Body mass index [BMI] 45.0-49.9, adult; L03.115 Cellulitis of right lower limb; L03.116 Cellulitis of left lower limb; E66.01 Morbid (severe) obesity due to excess calories; J45.909 Unspecified asthma, uncomplicated; B35.6 Tinea cruris; Z87.891 Personal history of nicotine dependence; Z79.4 Long term (current) use of insulin; Z80.42 Family history of malignant neoplasm of prostate; Z82.49 Family history of ischemic heart disease and other diseases of the circulatory system; Z83.3 Family history of diabetes mellitus

== ENCOUNTER 2017-11-23 12:50 | Emergency (ER) | payer BC, MEDICAID, OTHER ==
[2017-11-23 13:00] VITALS: BP 128/97; PULSE 83; RESP 20; TEMP 98.7; O2SAT 96
[2017-11-23] MEDS ORDERED: Lidocaine 1% Inj (20ml) INFIL STA (13:52)
[2017-11-23] MEDS ORDERED: Bacitracin 500 Units/gm Oint Foilpak UD TOP ONE (13:53)
--- NOTE | 2017-11-23 13:53 | C.PDOC ---
History Of Present Illness 27yo male, comes to ER complaining of a laceration to his right 2nd finger, sustained prior to arrival. Patient states he was putting something away in a truck and a metal piece cut his finger. He denies any changes in sensation. Time Seen by Provider: 11/23/17 13:44 Chief Complaint (Nursing): Abnormal Skin Integrity History Per: Patient History/Exam Limitations: no limitations Onset/Duration Of Symptoms: Mins Current Symptoms Are (Timing): Still Present Additional History Per: Patient Past Medical History Reviewed: Historical Data, Nursing Documentation, Vital Signs Vital Signs: Last Vital Signs Temp 98.7 F 11/23/17 12:56 Pulse 83 11/23/17 12:56 Resp 20 11/23/17 12:56 BP 128/97 H 11/23/17 12:56 Pulse Ox 96 11/23/17 16:53 - Medical History PMH: Asthma Denies: Chronic Kidney Disease Surgical History: No Surg Hx Family History: States: No Known Family Hx - Social History Hx Alcohol Use: Yes Hx Substance Use: No - Immunization History Hx Tetanus Toxoid Vaccination: No Hx Influenza Vaccination: No Hx Pneumococcal Vaccination: No Review Of Systems Except As Marked, All Systems Reviewed And Found Negative. Skin: Positive for: Other (laceration to right 2nd finger) Physical Exam - Physical Exam Appears: Non-toxic, No Acute Distress Skin: Normal Color, Warm, Dry Head: Atraumatic, Normacephalic Eye(s): bilateral: Normal Inspection, EOMI Nose: Normal Oral Mucosa: Moist Neck: Normal ROM, Supple Chest: Symmetrical Respiratory: No Accessory Muscle Use Extremity: Normal ROM, Capillary Refill (<2 sec), No Deformity, No Swelling, Other (2 cm laceration to dorsal aspect of proximal phalax) Extremity: Bilateral: Normal ROM Pulses: Left Radial: Normal, Right Radial: Normal Neurological/Psych: Oriented x3, Normal Motor, Normal Sensation ED Course And Treatment O2 Sat by Pulse Oximetry: 96 Progress Note: Laceration repaired using sutures. Patient placed in finger splint by RN and checked by me; post splint exam shows neurovascular sensations intact. Patient instructed on wound care and informed to follow up with PMD in 2 -3 days. Laceration - Laceration Repair RIght 2nd digit Wound Length (In cm): 2 Description Of Wound: Linear Wound Cleansed With: Betadine, Sterile Saline Anesthesia: Lidocaine 1% Wound Examination: Irrigated With Saline, No FB With Wound Exploration, No Tendon Injury With Wound Exploration Wound Closure: Suture (2) Suture Technique And Material Used: Interrupted (simple), Nylon (5:0) Wound Complexity: Simple Disposition - Disposition Disposition: HOME/ ROUTINE Disposition Time: 14:21 Condition: STABLE Additional Instructions: Wound check in 2 days. Suture removal in 7-10 days. Watch for signs of infection including redness, swelling and discharge. Prescriptions: Cephalexin [cephalexin] 500 mg PO BID 7 Days cap Instructions: Laceration Repair With Stitches (DC) Forms: [employer] (Japanese) - Clinical Impression Clinical Impression: Finger laceration - PA / CUSTOM HOME INSTALLER / Resident Statement MD/DO has reviewed & agrees with the documentation as recorded. - Scribe Statement The provider has reviewed the documentation as recorded by the Scribe (Mariela Navarrete) Provider Attestation: All medical record entries made by the Scribe were at my direction and personally dictated by me. I have reviewed the chart and agree that the record accurately reflects my personal performance of the history, physical exam, medical decision making, and the department course for this patient. I have also personally directed, reviewed, and agree with the discharge instructions and disposition.
[2017-11-23] MEDS ORDERED: Tdap Vaccine 0.5 ml Vial (10-64 yrs) IM ONE ×2 (13:54→14:01)
[2017-11-23] MEDS ORDERED: Bacitracin 500 Units/gm Oint Foilpak UD ONE ×2 (13:57→14:38)
[2017-11-23] MEDS ORDERED: Lidocaine Hydrochloride 5 ML INJ ONE (13:57)
== END 2017-11-23 14:29 | disposition home or self-care (01) ==
LOC: C.ER 12:50
DX: S61.210A Laceration without foreign body of right index finger without damage to nail, initial encounter (principal); W45.8XXA Other foreign body or object entering through skin, initial encounter